=== PATIENT | female | born 1990 | race Caucasian/White ===

== ENCOUNTER 2016-07-20 22:49 | Emergency (ER) | payer OTHER ==
[~2016-07-20 22:49] MED LIST: AUGMENTIN875 MG; CYMBALTA30 M1; FIORICET 50-321 EACH PO; IBUPROFEN800 MG; LEVO-T75 MCG; OMEPRAZOLE40 M1; ZYRTEC10 M1 PO
== END 2016-07-20 22:50 | disposition home or self-care (01) ==
LOC: CED 22:49
DX: Z53.21 Procedure and treatment not carried out due to patient leaving prior to being seen by health care provider (principal)
CPT/HCPCS: 87651; 87880

== ENCOUNTER 2016-07-24 19:05 | Emergency (ER) | payer BC, OTHER ==
--- NOTE | ~2016-07-24 | CR72 ---
[facility] A Service of [facility] RADIOLOGY TEXT RESULTS PATIENT: COLTEN MARTINEZ LOCATION: [facility] : [birth year] UNIT #: [id number] AGE: [address]: Sivan Page MD SEX: F ORDER DR: [id number] [facility] [address] [place], [place] [address] [id number] E MR#: [id number] Acc #: [id number] NAME: COLTEN MARTINEZ : 1990 SEX: F STUDY DATE/TIME: 07/24/2016 18:37 UNIT: [facility] ROOM: STUDY DESCRIPTION: CR Chest Single View Portable Attending Physician: Sivan Page M.D. Ordering Physician: Sivan Page M.D. Primary Care Physician: Rossana Hendricks A.P.R.N. MEDICAL IMAGING REPORT This report is preliminary unless electronic signature is present EXAM Portable chest HISTORY 26-year-old female cough, congestion, worse over the last 3 days, history of asthma. FINDINGS A single AP portable view of the chest shows both lungs to be clear. The heart is normal in size. The mediastinal contour is normal. No significant bone abnormalities are seen. IMPRESSION Normal portable chest. Dictated by... Juju Feldman M.D. THIS IS AN ELECTRONICALLY VERIFIED REPORT Juju Feldman M.D. at 07/25/2016 5:04 PM Geoff TD: 07/25/2016 07:21 JOB #: [id number] MEDICAL IMAGING REPORT COPY
== END 2016-07-24 20:40 | disposition home or self-care (01) ==
LOC: CED 19:05
DX: J45.909 Unspecified asthma, uncomplicated (principal); H66.92 Otitis media, unspecified, left ear; Z88.5 Allergy status to narcotic agent; Z88.8 Allergy status to other drugs, medicaments and biological substances
CPT/HCPCS: 71010; 94640; 99283

== ENCOUNTER 2017-01-30 18:32 | Emergency (ER) | payer OTHER ==
--- NOTE | ~2017-01-30 | CR127 ---
[facility] A Service of [facility] RADIOLOGY TEXT RESULTS PATIENT: COLTEN MARTINEZ LOCATION: SED : [birth year] UNIT #: [id number] AGE: [address]: Evie James APRN SEX: F ORDER DR: [id number] [place] [id number] E MR#: [id number] Acc #: [id number] NAME: COLTEN MARTINEZ : 1990 SEX: F STUDY DATE/TIME: 01/30/2017 18:53 UNIT: SED ROOM: STUDY DESCRIPTION: CR Foot Complete Min 3 View Rt Attending Physician: Evie James A.P.R.N. Ordering Physician: Evie Canales A.P.R.N. Primary Care Physician: Rossana Hendricks A.P.R.N. MEDICAL IMAGING REPORT This report is preliminary unless electronic signature is present. EXAM Right foot, 01/30/2017. INDICATION Pain in the anterior surface of the left foot for 3 days. Tripped on steps. TECHNIQUE Three views. COMPARISON No comparisons. FINDINGS The examination is negative. No acute fracture. Joint space is preserved. Soft tissues unremarkable. IMPRESSION Negative. Dictated by... Corey Jimenez M.D. THIS IS AN ELECTRONICALLY VERIFIED REPORT Corey Jimenez M.D. at 01/31/2017 8:29 AM TROY/mert TD: 01/31/2017 00:58 JOB #: [id number] [facility] A Service of [facility] RADIOLOGY TEXT RESULTS PATIENT: COLTEN MARTINEZ LOCATION: SED : [birth year] UNIT #: [id number] AGE: [address]: Evie James APRN SEX: F ORDER DR: MEDICAL IMAGING REPORT Page 1 of 1
[2017-01-30] MEDS ORDERED: SYNTHROID0.05 MG PO (18:39)
[2017-01-30] MEDS ORDERED: ZYRTEC10 M1 PO (18:39)
[2017-01-30] MEDS ORDERED: ZOLOFT PO (18:39)
[2017-01-30] MEDS ORDERED: MULTIVITAMINS1 EAC3 PO (18:40)
[2017-01-30] MEDS ORDERED: VICODIN 5-3001 EACH PO (18:40)
== END 2017-01-30 20:06 | disposition home or self-care (01) ==
LOC: SED 18:32
DX: S90.31XA Contusion of right foot, initial encounter (principal); Z88.5 Allergy status to narcotic agent; Z88.1 Allergy status to other antibiotic agents; Z88.8 Allergy status to other drugs, medicaments and biological substances; Z79.899 Other long term (current) drug therapy; X58.XXXA Exposure to other specified factors, initial encounter; Y92.009 Unspecified place in unspecified non-institutional (private) residence as the place of occurrence of the external cause
CPT/HCPCS: 73630; 99283